=== PATIENT | female | born 1955 | race Two or more races ===

== ENCOUNTER → 2018-07-12 | Outpatient (CLI) | payer OTHER | LOC: FIMAGING 08:04 | PROVIDERS: ATTEND Family Medicine | DX: Q44.6 Cystic disease of liver (principal) ==

== ENCOUNTER → 2018-09-14 | Outpatient (CLI) | payer MEDICAID | LOC: FIMAGING 08:34 | PROVIDERS: ATTEND Family Medicine | DX: Z12.31 Encounter for screening mammogram for malignant neoplasm of breast (principal) ==

== ENCOUNTER → 2019-01-30 | Outpatient (CLI) | payer MEDICAID | LOC: FIMAGING 06:52 ==